=== PATIENT | female | born 1970 | race African-American/Black ===

== ENCOUNTER 2023-07-20 17:09 | Inpatient (IN) | payer OTHER ==
[~2023-07-20] VITALS: Ht 170.2 cm; Wt 89.8 kg
[2023-07-20] MEDS ORDERED: NICARDIPINE 40MG/200ML PREMIX 200 ML IV ONE ×2 (17:45→18:37)
[2023-07-20 18:22] LABS: BASOPHILS % 0.4 % (0.0-2.0); HEMATOCRIT. 42.8 % (36.0-48.0); HEMOGLOBIN. 14.3 g/dL (12.0-16.0); LYMPHOCYTES % 8.5 % (20.0-50.0); MEAN CORPUSCULAR HEMOGLOBIN 30.9 pg (28.0-32.0); MEAN CORPUSCULAR HGB CONC 33.4 g/dL (31.0-37.0); MEAN CORPUSCULAR VOLUME 92.4 fL (81.0-99.0); MEAN PLATELET VOLUME 9.5 fl (7.4-10.4); MONOCYTES % 3.3 % (2.0-8.0); NEUTROPHILS % 87.8 % (40.0-76.0); PLATELET 310 x1000/uL (130-400); RED BLOOD CELL COUNT 4.63 mill/uL (4.2-5.4); RED CELL DISTRIBUTION WIDTH 14.7 % (11.6-14.6); WHITE BLOOD COUNT 9.6 x1000/uL (4.5-11.0)
[2023-07-20] MEDS ORDERED: MANNITOL 12.5G (25%) VIAL 50ML IV ONE (18:30)
[2023-07-20] MEDS ORDERED: MANNITOL 20% 250 ML IV NR (18:30)
[2023-07-20 18:31] LABS: PROTHROMBIN TIME 10.6 sec (9.6-11.0)
[2023-07-20 18:33] LABS: CHLORIDE 100 mEq/L (98-107); INDEX HEMOLYSI 1 (1-3); INDEX ICTERIC 1 (1-4); INDEX LIPEMIC 1 (1-3); POTASSIUM 3.1 mEq/L (3.5-5.1); SODIUM 139 mEq/L (136-145)
[2023-07-20 18:46] LABS: ALANINE AMINOTRANSFERASE 24 IU/L (13-61); ALBUMIN 4.4 g/dL (3.4-5.0); ASPARTATE AMINOTRANSFERASE 17 IU/L (15-37); BILIRUBIN TOTAL 0.9 mg/dL (0.1-1.0); CALCIUM 9.8 mg/dL (8.5-10.1); CARBON DIOXIDE 28 mEq/L (21-32); ETHANOL BLOOD < 10 mg/dL (<10); GLUCOSE 176 mg/dL (70-105); NT PRO B-TYPE NATRIURETIC PEP 554 pg/mL (5-125); PROTEIN TOTAL 9.4 g/dL (6.0-8.3); TROPONIN I HIGH SENSITIVITY 16 ng/L (<54); UREA NITROGEN BLOOD 15 mg/dL (7-21)
[2023-07-20] MEDS ORDERED: ESMOLOL 2500MG PREMIX 250 ML IV ONE ×2 (19:00→19:45)
[2023-07-20 20:30] LABS: CLARITY URINE CLEAR (CLEAR); COLOR URINE YELLOW (YELLOW); GLUCOSE URINE NEGATIVE (NEGATIVE); KETONES URINE NEGATIVE (NEGATIVE); LEUKOCYTE ESTERASE URINE NEGATIVE (NEGATIVE); NITRITE URINE NEGATIVE (NEGATIVE); OCCULT BLOOD URINE TRACE (NEGATIVE); PH URINE 6.5 (4.5-8.0); PROTEIN URINE 3+ (NEGATIVE); SPECIFIC GRAVITY URINE 1.024 (1.005-1.030); UROBILINOGEN URINE 0.2 E.U./dL (0.2-1.0)
[2023-07-20 20:32] LABS: SQUAMOUS EPITHELIAL CELL URINE 1+ /lpf (RARE/1+); YEAST URINE NONE SEEN
[2023-07-20] MEDS ORDERED: MORPHINE SULFATE 4 MG/ML CPJ (NOT FOR IM USE) IV STA (20:36)
[2023-07-20] MEDS ORDERED: ONDANSETRON HCL 4MG/2ML INJ IV STA (20:36)
[2023-07-20 20:45] LABS: TROPONIN I HIGH SENSITIVITY 17 ng/L (<54)
[2023-07-20 20:47] LABS: *AMPHETAMINES SCREEN URINE NEGATIVE (NEGATIVE); *BARBITURATES SCREEN URINE NEGATIVE (NEGATIVE); *BENZODIAZEPINES SCREEN URINE NEGATIVE (NEGATIVE); *COCAINE SCREEN URINE NEGATIVE (NEGATIVE); CANNABINOID URINE SCREEN NEGATIVE (NEGATIVE); ECSTASY MDMA SCREEN URINE NEGATIVE (NEGATIVE); METHADONE URINE SCREEN NEGATIVE (NEGATIVE); OPIATES URINE SCREEN NEGATIVE (NEGATIVE); PHENCYCLIDINE URINE SCREEN NEGATIVE (NEGATIVE)
[2023-07-20] MEDS ORDERED: MORPHINE SULFATE 4 MG/ML CPJ (NOT FOR IM USE) IV ONE (20:48)
[2023-07-20 20:52] LABS: BACTERIA URINE TRACE; RBC URINE 0-2 /hpf (0-2)
[2023-07-20] MEDS ORDERED: ONDANSETRON HCL 4MG/2ML INJ ONE (20:53)
[2023-07-20] MEDS ORDERED: NICARDIPINE 40MG/200ML PREMIX 200 ML IV PRN ×2 (21:45→22:00)
[2023-07-20] MEDS ORDERED: NICARDIPINE 100 MG in SODIUM CHLORIDE 0.9% 60 ML IV PRN (22:00)
[2023-07-20] MEDS ORDERED: DOCUSATE SODIUM 100MG CAPSULE PO PRN (23:45)
[2023-07-20] MEDS ORDERED: ACETAMINOPHEN 325MG TABLET PO PRN ×2 (23:45)
[2023-07-20] MEDS ORDERED: ONDANSETRON HCL 4MG/2ML INJ IV PRN (23:45)
[2023-07-21] VITALS (82 sets, daily range): BP systolic 93–169; BP diastolic 56–122; PULSE 77–103; RESP 13–23; TEMP 97.6–98.8
[2023-07-21] MEDS ORDERED: DEXAMETHASONE 4MG/ML 1ML VIAL IV SCH ×2
[2023-07-21] MEDS ORDERED: MANNITOL 20% (20GM/100ML) BAG 500ML PREMIX IV SCH (00:15)
[2023-07-21] MEDS ORDERED: MANNITOL 20% 500 ML IV SCH (00:15)
[2023-07-21] MEDS ORDERED: ESMOLOL 2500MG PREMIX 250 ML IV ONE (00:30)
[2023-07-21] MEDS: LACTATED RINGERS 1,000 ML IV SCH ×2 (01:15→14:35)
[2023-07-21] MEDS: NICARDIPINE 100 MG in SODIUM CHLORIDE 0.9% 60 ML IV PRN ×2 (01:58→10:16)
[2023-07-21] MEDS: DEXAMETHASONE 10 MG/ML VIAL IV SCH ×6 (01:58→20:14)
[2023-07-21] MEDS: DEXT 5%/LACTATED RINGERS 1,000 ML IV SCH ×2 (01:59→17:47)
[2023-07-21] MEDS: MANNITOL 20% 500 ML IV SCH ×5 (02:10→17:48)
[2023-07-21] MEDS: KCL 20MEQ/100ML PREMIX 100 ML IV SCH ×2 (02:53→04:55)
[2023-07-21] MEDS ORDERED: LABETALOL 5MG/ML SYR 20 MG/4 ML SYRINGE IV ONE ×2 (03:07→20:49)
[2023-07-21] MEDS: LABETALOL HCL VIAL 20 MG/4 ML VIAL IV PRN ×2 (03:15→20:52)
[2023-07-21 05:34] LABS: HEMATOCRIT. 37.1 % (36.0-48.0); HEMOGLOBIN. 12.6 g/dL (12.0-16.0); MEAN CORPUSCULAR HEMOGLOBIN 31.4 pg (28.0-32.0); MEAN CORPUSCULAR HGB CONC 33.8 g/dL (31.0-37.0); MEAN CORPUSCULAR VOLUME 92.9 fL (81.0-99.0); MEAN PLATELET VOLUME 9.7 fl (7.4-10.4); PLATELET 274 x1000/uL (130-400); WHITE BLOOD COUNT 10.3 x1000/uL (4.5-11.0)
[2023-07-21 06:01] LABS: CHLORIDE 96 mEq/L (98-107); INDEX HEMOLYSI 1 (1-3); INDEX ICTERIC 1 (1-4); INDEX LIPEMIC 1 (1-3); POTASSIUM 3.9 mEq/L (3.5-5.1); SODIUM 131 mEq/L (136-145)
[2023-07-21 06:16] LABS: ALANINE AMINOTRANSFERASE 20 IU/L (13-61); ALBUMIN 3.8 g/dL (3.4-5.0); ASPARTATE AMINOTRANSFERASE 18 IU/L (15-37); CALCIUM 8.6 mg/dL (8.5-10.1); CARBON DIOXIDE 26 mEq/L (21-32); CHOLESTEROL 177 mg/dL (<200); CREATINE KINASE 123 IU/L (26-192); CREATININE 1.9 mg/dL (0.6-1.3); GLUCOSE 163 mg/dL (70-105); HDL CHOLESTEROL 76 mg/dL (40-59); LDL CHOLESTEROL 95 mg/dL (5-100); PROTEIN TOTAL 8.2 g/dL (6.0-8.3); T4 FREE 0.83 ng/dL (0.76-1.46); TRIGLYCERIDE 88 mg/dL (0-150); UREA NITROGEN BLOOD 20 mg/dL (7-21)
[2023-07-21 06:26] LABS: DIFFERENTIAL COMMENT 1
[2023-07-21 08:00] LABS: HEPATITIS B SURFACE ANTIGEN NEGATIVE
[2023-07-21 08:29] LABS: HEPATITIS C VIR.AB 0.16 INDEXVAL (0.00-0.80)
[2023-07-21] MEDS: FAMOTIDINE 20MG/2ML VIAL IV SCH (08:29)
[2023-07-21] MEDS ORDERED: IOHEXOL-350 100 ML BOTTLE ONE (09:45)
[2023-07-21 13:48] LABS: PLATELET ESTIMATE NORMAL
[2023-07-21] MEDS ORDERED: MAGNESIUM 2 G PREMIX 50 ML IV NR (14:30)
[2023-07-21 17:43] LABS: INDEX HEMOLYSI 1 (1-3)
[2023-07-21 17:50] LABS: CREATINE KINASE 107 IU/L (26-192)
[2023-07-22] VITALS (98 sets, daily range): BP systolic 97–153; BP diastolic 65–94; PULSE 73–104; RESP 12–29; TEMP 97.5–98.5
[2023-07-22] MEDS: DEXAMETHASONE 10 MG/ML VIAL IV SCH ×2 (00:05→04:10)
[2023-07-22] MEDS: NICARDIPINE 100 MG in SODIUM CHLORIDE 0.9% 60 ML IV PRN ×2 (01:12→14:49)
[2023-07-22 05:47] LABS: BASOPHILS % 0.2 % (0.0-2.0); HEMATOCRIT. 40.4 % (36.0-48.0); HEMOGLOBIN. 13.1 g/dL (12.0-16.0); MEAN CORPUSCULAR HEMOGLOBIN 30.7 pg (28.0-32.0); MEAN CORPUSCULAR HGB CONC 32.3 g/dL (31.0-37.0); MEAN CORPUSCULAR VOLUME 95.2 fL (81.0-99.0); MEAN PLATELET VOLUME 9.4 fl (7.4-10.4); MONOCYTES % 2.3 % (2.0-8.0); NEUTROPHILS % 89.5 % (40.0-76.0); PLATELET 286 x1000/uL (130-400); RED BLOOD CELL COUNT 4.25 mill/uL (4.2-5.4); RED CELL DISTRIBUTION WIDTH 15.1 % (11.6-14.6); WHITE BLOOD COUNT 14.9 x1000/uL (4.5-11.0)
[2023-07-22 06:05] LABS: CHLORIDE 107 mEq/L (98-107); INDEX HEMOLYSI 1 (1-3); INDEX ICTERIC 1 (1-4); INDEX LIPEMIC 1 (1-3); POTASSIUM 3.7 mEq/L (3.5-5.1); SODIUM 141 mEq/L (136-145)
[2023-07-22 06:39] LABS: ALANINE AMINOTRANSFERASE 23 IU/L (13-61); ALBUMIN 4.1 g/dL (3.4-5.0); ASPARTATE AMINOTRANSFERASE 17 IU/L (15-37); BILIRUBIN TOTAL 0.8 mg/dL (0.1-1.0); CREATININE 2.3 mg/dL (0.6-1.3); GLUCOSE 173 mg/dL (70-105); PHOSPHORUS 4.7 mg/dL (2.5-4.9); PROTEIN TOTAL 9.1 g/dL (6.0-8.3); UREA NITROGEN BLOOD 24 mg/dL (7-21)
[2023-07-22] MEDS ORDERED: LABETALOL 5MG/ML SYR 20 MG/4 ML SYRINGE IV ONE (07:25)
[2023-07-22] MEDS: LABETALOL HCL VIAL 20 MG/4 ML VIAL IV PRN (07:33)
[2023-07-22] MEDS: DEXAMETHASONE 4MG/ML 1ML VIAL IV SCH ×4 (08:49→23:53)
[2023-07-22] MEDS: FAMOTIDINE 20MG/2ML VIAL IV SCH (08:49)
[2023-07-22] MEDS: LACTATED RINGERS 1,000 ML IV SCH (08:50)
[2023-07-22] MEDS: LEVETIRACETAM 500MG PREMIX 100 ML IV SCH ×2 (11:36→20:54)
[2023-07-22 11:40] LABS: CARBON DIOXIDE 23 mEq/L (21-32)
[2023-07-22] MEDS: DEXT 5%/LACTATED RINGERS 1,000 ML IV SCH ×2 (13:11→14:51)
[2023-07-23] VITALS (100 sets, daily range): BP systolic 94–159; BP diastolic 59–92; PULSE 80–113; RESP 11–21; TEMP 98.1–98.7
[2023-07-23] MEDS: NICARDIPINE 100 MG in SODIUM CHLORIDE 0.9% 60 ML IV PRN ×3 (02:26→19:49)
[2023-07-23] MEDS ORDERED: LABETALOL HCL VIAL 20 MG/4 ML VIAL IV PRN (05:00)
[2023-07-23 05:23] LABS: HEMATOCRIT. 38.6 % (36.0-48.0); HEMOGLOBIN. 12.5 g/dL (12.0-16.0); MEAN CORPUSCULAR HEMOGLOBIN 30.8 pg (28.0-32.0); MEAN CORPUSCULAR HGB CONC 32.3 g/dL (31.0-37.0); MEAN CORPUSCULAR VOLUME 95.4 fL (81.0-99.0); MEAN PLATELET VOLUME 9.5 fl (7.4-10.4); PLATELET 281 x1000/uL (130-400); RED BLOOD CELL COUNT 4.05 mill/uL (4.2-5.4); WHITE BLOOD COUNT 16.4 x1000/uL (4.5-11.0)
[2023-07-23 05:28] LABS: CHLORIDE 113 mEq/L (98-107); INDEX HEMOLYSI 1 (1-3); INDEX ICTERIC 1 (1-4); INDEX LIPEMIC 1 (1-3); POTASSIUM 3.7 mEq/L (3.5-5.1); SODIUM 145 mEq/L (136-145)
[2023-07-23 05:41] LABS: ALANINE AMINOTRANSFERASE 53 IU/L (13-61); ALBUMIN 3.6 g/dL (3.4-5.0); ASPARTATE AMINOTRANSFERASE 60 IU/L (15-37); CALCIUM 9.3 mg/dL (8.5-10.1); CARBON DIOXIDE 27 mEq/L (21-32); CREATININE 1.6 mg/dL (0.6-1.3); GLUCOSE 166 mg/dL (70-105); PHOSPHORUS 4.1 mg/dL (2.5-4.9); PROTEIN TOTAL 8.2 g/dL (6.0-8.3); UREA NITROGEN BLOOD 37 mg/dL (7-21)
[2023-07-23] MEDS: DEXT 5%/LACTATED RINGERS 1,000 ML IV SCH ×2 (06:02→23:16)
[2023-07-23] MEDS: DEXAMETHASONE 4MG/ML 1ML VIAL IV SCH ×4 (06:02→23:16)
[2023-07-23 06:34] LABS: DIFFERENTIAL COMMENT 1
[2023-07-23] MEDS: FAMOTIDINE 20MG/2ML VIAL IV SCH (08:27)
[2023-07-23] MEDS: LEVETIRACETAM 500MG PREMIX 100 ML IV SCH (08:27)
[2023-07-23] MEDS: LABETALOL 5MG/ML SYR 20 MG/4 ML SYRINGE IV PRN ×2 (09:07→12:08)
[2023-07-23] MEDS ORDERED: AMLODIPINE 10MG TABLET PO SCH (09:15)
[2023-07-23 12:51] LABS: PLATELET ESTIMATE NORMAL
[2023-07-23] MEDS: AMLODIPINE 10MG TABLET PO SCH (15:36)
[2023-07-23] MEDS: MORPHINE SULFATE 2 MG/ML CPJ (NOT FOR IM USE) IV PRN (16:54)
[2023-07-23] MEDS: HYDRALAZINE 20MG/ML VIAL IV PRN (17:07)
[2023-07-23] MEDS: METOPROLOL TARTRATE 25MG TABLET PO SCH (20:26)
[2023-07-23] MEDS: LEVETIRACETAM 500MG TABLET PO SCH (20:32)
[2023-07-23] MEDS ORDERED: LEVETIRACETAM 500MG PREMIX 100 ML IV SCH (21:00)
[2023-07-23] MEDS ORDERED: FAMOTIDINE 20MG TABLET PO SCH (21:00)
[2023-07-23] MEDS: HYDRALAZINE HCL 50MG TABLET PO SCH (21:40)
[2023-07-24] VITALS (92 sets, daily range): BP systolic 104–156; BP diastolic 63–92; PULSE 67–110; RESP 10–37; TEMP 98.3–99.2
[2023-07-24 05:24] LABS: HEMATOCRIT. 39.6 % (36.0-48.0); MEAN CORPUSCULAR HEMOGLOBIN 31.2 pg (28.0-32.0); MEAN CORPUSCULAR HGB CONC 32.9 g/dL (31.0-37.0); MEAN CORPUSCULAR VOLUME 94.9 fL (81.0-99.0); MEAN PLATELET VOLUME 9.7 fl (7.4-10.4); PLATELET 272 x1000/uL (130-400); RED BLOOD CELL COUNT 4.17 mill/uL (4.2-5.4); RED CELL DISTRIBUTION WIDTH 15.2 % (11.6-14.6); WHITE BLOOD COUNT 12.2 x1000/uL (4.5-11.0)
[2023-07-24 05:36] LABS: CHLORIDE 116 mEq/L (98-107); INDEX HEMOLYSI 1 (1-3); INDEX ICTERIC 1 (1-4); INDEX LIPEMIC 1 (1-3); POTASSIUM 3.5 mEq/L (3.5-5.1); SODIUM 149 mEq/L (136-145)
[2023-07-24 05:46] LABS: ALANINE AMINOTRANSFERASE 207 IU/L (13-61); ALBUMIN 3.6 g/dL (3.4-5.0); ASPARTATE AMINOTRANSFERASE 203 IU/L (15-37); BILIRUBIN TOTAL 0.9 mg/dL (0.1-1.0); CALCIUM 9.4 mg/dL (8.5-10.1); CARBON DIOXIDE 29 mEq/L (21-32); CREATININE 1.4 mg/dL (0.6-1.3); GLUCOSE 171 mg/dL (70-105); PHOSPHORUS 3.1 mg/dL (2.5-4.9); PROTEIN TOTAL 8.2 g/dL (6.0-8.3); UREA NITROGEN BLOOD 36 mg/dL (7-21)
[2023-07-24] MEDS: DEXAMETHASONE 4MG/ML 1ML VIAL IV SCH ×2 (06:03→11:54)
[2023-07-24] MEDS: HYDRALAZINE HCL 50MG TABLET PO SCH ×3 (06:03→22:00)
[2023-07-24 06:16] LABS: DIFFERENTIAL COMMENT 1
[2023-07-24] MEDS: LEVETIRACETAM 500MG TABLET PO SCH ×2 (08:02→20:57)
[2023-07-24] MEDS: AMLODIPINE 10MG TABLET PO SCH (08:02)
[2023-07-24] MEDS: METOPROLOL TARTRATE 25MG TABLET PO SCH ×2 (08:03→20:57)
[2023-07-24] MEDS ORDERED: FAMOTIDINE 20MG TABLET PO SCH (09:00)
[2023-07-24] MEDS ORDERED: AMLODIPINE 5MG TABLET PO SCH (09:00)
[2023-07-24] MEDS ORDERED: POTASSIUM CHLORIDE 20MEQ TABLET SR PO NR (09:15)
[2023-07-24] MEDS ORDERED: NALOXONE HCL 0.4MG/ML VIAL IV PRN (09:30)
[2023-07-24 11:20] LABS: NUCLEATED RED BLOOD CELLS 1 /100 WBC; PLATELET ESTIMATE NORMAL
[2023-07-24] MEDS: HYDRALAZINE 20MG/ML VIAL IV PRN (15:55)
[2023-07-24] MEDS: DEXT 5%/LACTATED RINGERS 1,000 ML IV SCH (16:46)
[2023-07-24] MEDS: LABETALOL 5MG/ML SYR 20 MG/4 ML SYRINGE IV PRN (18:40)
[2023-07-24] MEDS: MORPHINE SULFATE 2 MG/ML CPJ (NOT FOR IM USE) IV PRN (19:52)
[2023-07-24] MEDS ORDERED: MANNITOL 12.5G (25%) VIAL 50ML IV SCH (21:15)
[2023-07-24] MEDS: NICARDIPINE 100 MG in SODIUM CHLORIDE 0.9% 60 ML IV PRN (22:04)
[2023-07-24] MEDS ORDERED: THROMBIN (BOVINE) 5000 UNITS/VIAL TOP ONE (23:15)
[2023-07-24] MEDS ORDERED: LIDOCAINE HCL 1%/EPI 1:200,000 30 ML VIAL ONE (23:15)
[2023-07-24] MEDS ORDERED: BACITRACIN 14GM TUBE TOP ONE (23:15)
[2023-07-24] MEDS ORDERED: GENTAMICIN SULF 40MG/ML 2ML VIAL ONE (23:15)
[2023-07-24] MEDS ORDERED: CEFAZOLIN SODIUM 1000MG/VIAL ONE (23:23)
[2023-07-24] MEDS ORDERED: ROCURONIUM BROMIDE 10MG/ML VIAL 5ML IV ONE (23:25)
[2023-07-25] VITALS (92 sets, daily range): BP systolic 95–176; BP diastolic 51–93; PULSE 85–121; RESP 0–31; TEMP 97.7–99.5
[2023-07-25] MEDS ORDERED: PROPOFOL 200MG/20ML VIAL IV ONE (00:30)
[2023-07-25] MEDS ORDERED: SUCCINYLCHOLINE CHLORIDE 200MG/10ML IV ONE (00:55)
[2023-07-25] MEDS ORDERED: LEVETIRACETAM 500 MG in SODIUM CHLORIDE 0.9% 100 ML IV SCH (01:15)
[2023-07-25] MEDS ORDERED: DEXAMETHASONE 4MG/ML 1ML VIAL ONE (01:19)
[2023-07-25] MEDS ORDERED: ONDANSETRON HCL 4MG/2ML INJ ONE (01:19)
[2023-07-25 01:27] LABS: BG CARBOXYHEMOGLOBIN 0.3 % (0.5-1.5); BG DEOXYHEMOGLOBIN 0.4 % (0.0-5.0); BG FRACTION INSPIRED OXYGEN 100; BG HCO3 ACT 21.4 mmol/L (22.0-26.0); BG METHEMOGLOBIN 0.2 % (0.0-1.5); BG OXYGEN SATURATION 99.6 % (92.0-98.5); BG OXYHEMOGLOBIN 99.1 % (94.0-97.0); BG PCO2 36.4 mmHg (35.0-45.0); BG PH 7.388 (7.350-7.450); BG PO2 359.6 mmHg (75.0-100.0); BG SAMPLE SITE ALINE; BG TOTAL HEMOGLOBIN 14.3 g/dL (12.0-18.0); BG VENT MODE VENT - AC
[2023-07-25] MEDS: MORPHINE SULFATE 2 MG/ML CPJ (NOT FOR IM USE) IV PRN (02:17)
[2023-07-25] MEDS: PROPOFOL 10MG/ML 100ML 100 ML IV PRN ×2 (02:18→08:07)
[2023-07-25] MEDS: LEVETIRACETAM 500MG PREMIX 100 ML IV SCH ×2 (02:19→20:37)
[2023-07-25] MEDS ORDERED: LEVETIRACETAM 500MG in SODIUM CHLORIDE 0.9% 100ML IV SCH (03:00)
[2023-07-25] MEDS: LABETALOL 5MG/ML SYR 20 MG/4 ML SYRINGE IV PRN ×2 (03:28→16:10)
[2023-07-25] MEDS: NICARDIPINE 100 MG in SODIUM CHLORIDE 0.9% 60 ML IV PRN ×4 (04:02→19:23)
[2023-07-25] MEDS: CEFAZOLIN 1000MG PREMIX 50 ML IV SCH ×3 (05:51→21:52)
[2023-07-25] MEDS: HYDRALAZINE HCL 50MG TABLET PO SCH (06:00)
[2023-07-25] MEDS ORDERED: CEFAZOLIN 1000MG/50ML PREMIX IV SCH (06:00)
[2023-07-25 06:18] LABS: BG BASE EXCESS -2.2 mmol/L (-2.0-2.0); BG CARBOXYHEMOGLOBIN 0.2 % (0.5-1.5); BG FRACTION INSPIRED OXYGEN 50; BG HCO3 ACT 21.7 mmol/L (22.0-26.0); BG METHEMOGLOBIN 0.2 % (0.0-1.5); BG OXYHEMOGLOBIN 97.6 % (94.0-97.0); BG PCO2 34.5 mmHg (35.0-45.0); BG PH 7.416 (7.350-7.450); BG PO2 116.8 mmHg (75.0-100.0); BG SAMPLE SITE ALINE; BG TOTAL HEMOGLOBIN 12.8 g/dL (12.0-18.0); BG VENT MODE VENT - AC
[2023-07-25] MEDS: DEXAMETHASONE 4MG/ML 1ML VIAL IV SCH (08:07)
[2023-07-25] MEDS ORDERED: LIDOCAINE HCL/PF 1% 10 MG/ML 5ML VIAL ONE (08:47)
[2023-07-25] MEDS ORDERED: ACETAMINOPHEN 650MG SUPP PR PRN (09:00)
[2023-07-25] MEDS: DEXT 5%/LACTATED RINGERS 1,000 ML IV SCH (09:18)
[2023-07-25] MEDS: PANTOPRAZOLE SODIUM 40 MG/VIAL IV SCH (09:18)
[2023-07-25 11:51] LABS: HEMATOCRIT. 32.5 % (36.0-48.0); HEMOGLOBIN. 10.6 g/dL (12.0-16.0); MEAN CORPUSCULAR HEMOGLOBIN 31.3 pg (28.0-32.0); MEAN CORPUSCULAR HGB CONC 32.6 g/dL (31.0-37.0); MEAN CORPUSCULAR VOLUME 95.8 fL (81.0-99.0); MEAN PLATELET VOLUME 9.3 fl (7.4-10.4); PLATELET 206 x1000/uL (130-400); RED BLOOD CELL COUNT 3.39 mill/uL (4.2-5.4); RED CELL DISTRIBUTION WIDTH 15.1 % (11.6-14.6); WHITE BLOOD COUNT 10.5 x1000/uL (4.5-11.0)
[2023-07-25 11:53] LABS: DIFFERENTIAL COMMENT 1
[2023-07-25 12:00] LABS: CHLORIDE 111 mEq/L (98-107); INDEX HEMOLYSI 1 (1-3); INDEX ICTERIC 1 (1-4); INDEX LIPEMIC 1 (1-3); POTASSIUM 3.5 mEq/L (3.5-5.1); SODIUM 144 mEq/L (136-145)
[2023-07-25 12:00] LABS: BG BASE EXCESS 1.5 mmol/L (-2.0-2.0); BG CARBOXYHEMOGLOBIN 0.4 % (0.5-1.5); BG DEOXYHEMOGLOBIN 2.1 % (0.0-5.0); BG FRACTION INSPIRED OXYGEN 40; BG METHEMOGLOBIN 0.2 % (0.0-1.5); BG OXYGEN SATURATION 97.9 % (92.0-98.5); BG OXYHEMOGLOBIN 97.3 % (94.0-97.0); BG PCO2 40.6 mmHg (35.0-45.0); BG PH 7.424 (7.350-7.450); BG PO2 104.1 mmHg (75.0-100.0); BG SAMPLE SITE RIGHT RADIAL; BG TOTAL HEMOGLOBIN 14.7 g/dL (12.0-18.0); BG VENT MODE VENT - CPAP
[2023-07-25 12:08] LABS: ALANINE AMINOTRANSFERASE 267 IU/L (13-61); ALBUMIN 3.2 g/dL (3.4-5.0); ASPARTATE AMINOTRANSFERASE 151 IU/L (15-37); BILIRUBIN TOTAL 1.1 mg/dL (0.1-1.0); CALCIUM 8.8 mg/dL (8.5-10.1); CARBON DIOXIDE 28 mEq/L (21-32); CREATININE 1.4 mg/dL (0.6-1.3); GLUCOSE 197 mg/dL (70-105); PHOSPHORUS 3.3 mg/dL (2.5-4.9); PROTEIN TOTAL 7.5 g/dL (6.0-8.3); UREA NITROGEN BLOOD 31 mg/dL (7-21)
[2023-07-25 13:24] LABS: ANISOCYTOSIS 1+; PLATELET ESTIMATE NORMAL
[2023-07-25] MEDS: HYDRALAZINE 20MG/ML VIAL IV PRN ×2 (15:06→23:28)
[2023-07-26] VITALS (85 sets, daily range): BP systolic 128–170; BP diastolic 42–91; PULSE 89–112; RESP 0–27; TEMP 98.2–99.8
[2023-07-26] MEDS: NICARDIPINE 100 MG in SODIUM CHLORIDE 0.9% 60 ML IV PRN ×5 (02:23→23:18)
[2023-07-26] MEDS: CEFAZOLIN 1000MG PREMIX 50 ML IV SCH ×3 (05:56→21:11)
[2023-07-26] MEDS: DEXT 5%/LACTATED RINGERS 1,000 ML IV SCH ×2 (06:49→18:30)
[2023-07-26] MEDS: HYDRALAZINE 20MG/ML VIAL IV PRN (06:55)
[2023-07-26] MEDS: PANTOPRAZOLE SODIUM 40 MG/VIAL IV SCH (08:58)
[2023-07-26] MEDS: DEXAMETHASONE 4MG/ML 1ML VIAL IV SCH (08:58)
[2023-07-26] MEDS: AMLODIPINE 5MG TABLET PO SCH (08:59)
[2023-07-26] MEDS: LEVETIRACETAM 500MG PREMIX 100 ML IV SCH ×2 (08:59→20:06)
[2023-07-26 09:31] LABS: HEMATOCRIT 38.4 % (36.0-48.0); HEMOGLOBIN 12.5 g/dL (12.0-16.0); MEAN CORPUSCULAR HEMOGLOBIN 30.9 pg (28.0-32.0); MEAN CORPUSCULAR HGB CONC 32.6 g/dL (31.0-37.0); MEAN CORPUSCULAR VOLUME 94.7 fL (81.0-99.0); PLATELET 222 x1000/uL (130-400); RED BLOOD CELL COUNT 4.06 mill/uL (4.2-5.4); RED CELL DISTRIBUTION WIDTH 14.9 % (11.6-14.6)
[2023-07-26 09:44] LABS: CHLORIDE 111 mEq/L (98-107); INDEX HEMOLYSI 1 (1-3); INDEX ICTERIC 1 (1-4); INDEX LIPEMIC 1 (1-3); POTASSIUM 3.1 mEq/L (3.5-5.1); SODIUM 146 mEq/L (136-145)
[2023-07-26 09:52] LABS: ALANINE AMINOTRANSFERASE 231 IU/L (13-61); ALBUMIN 2.9 g/dL (3.4-5.0); ASPARTATE AMINOTRANSFERASE 110 IU/L (15-37); BILIRUBIN TOTAL 0.7 mg/dL (0.1-1.0); CALCIUM 8.6 mg/dL (8.5-10.1); CARBON DIOXIDE 31 mEq/L (21-32); GLUCOSE 182 mg/dL (70-105); PHOSPHORUS 2.6 mg/dL (2.5-4.9); PROTEIN TOTAL 7.2 g/dL (6.0-8.3); UREA NITROGEN BLOOD 27 mg/dL (7-21)
[2023-07-26] MEDS: MORPHINE SULFATE 2 MG/ML CPJ (NOT FOR IM USE) IV PRN (10:17)
[2023-07-26] MEDS: HYDRALAZINE HCL 10MG TABLET PO SCH ×2 (14:08→21:12)
[2023-07-26] MEDS: KCL 20MEQ/100ML PREMIX 100 ML IV SCH ×2 (16:30→18:29)
[2023-07-27] VITALS (86 sets, daily range): BP systolic 117–158; BP diastolic 66–99; PULSE 77–110; RESP 0–25; TEMP 98.2–98.7
[2023-07-27] MEDS: CEFAZOLIN 1000MG PREMIX 50 ML IV SCH (05:23)
[2023-07-27] MEDS: HYDRALAZINE HCL 10MG TABLET PO SCH (05:24)
[2023-07-27 05:30] LABS: HEMATOCRIT 38.7 % (36.0-48.0); HEMOGLOBIN 12.8 g/dL (12.0-16.0); MEAN CORPUSCULAR HEMOGLOBIN 31.2 pg (28.0-32.0); MEAN CORPUSCULAR VOLUME 94.6 fL (81.0-99.0); PLATELET 221 x1000/uL (130-400); RED BLOOD CELL COUNT 4.09 mill/uL (4.2-5.4); RED CELL DISTRIBUTION WIDTH 14.3 % (11.6-14.6); WHITE BLOOD COUNT 9.8 x1000/uL (4.5-11.0)
[2023-07-27 05:32] LABS: CHLORIDE 107 mEq/L (98-107); INDEX HEMOLYSI 1 (1-3); INDEX ICTERIC 1 (1-4); INDEX LIPEMIC 1 (1-3); POTASSIUM 3.2 mEq/L (3.5-5.1); SODIUM 143 mEq/L (136-145)
[2023-07-27 05:39] LABS: ALANINE AMINOTRANSFERASE 163 IU/L (13-61); ALBUMIN 2.7 g/dL (3.4-5.0); ASPARTATE AMINOTRANSFERASE 55 IU/L (15-37); BILIRUBIN TOTAL 0.7 mg/dL (0.1-1.0); CALCIUM 8.4 mg/dL (8.5-10.1); CARBON DIOXIDE 29 mEq/L (21-32); CREATININE 0.9 mg/dL (0.6-1.3); GLUCOSE 161 mg/dL (70-105); PHOSPHORUS 2.6 mg/dL (2.5-4.9); PROTEIN TOTAL 7.2 g/dL (6.0-8.3); UREA NITROGEN BLOOD 23 mg/dL (7-21)
[2023-07-27] MEDS: NICARDIPINE 100 MG in SODIUM CHLORIDE 0.9% 60 ML IV PRN ×3 (07:36→21:50)
[2023-07-27] MEDS: AMLODIPINE 5MG TABLET PO SCH (07:37)
[2023-07-27] MEDS: KCL 20MEQ/100ML PREMIX 100 ML IV SCH ×2 (07:37→10:09)
[2023-07-27] MEDS: HYDRALAZINE 20MG/ML VIAL IV PRN (07:37)
[2023-07-27] MEDS: PANTOPRAZOLE SODIUM 40 MG/VIAL IV SCH (07:45)
[2023-07-27] MEDS: DEXAMETHASONE 4MG/ML 1ML VIAL IV SCH (07:45)
[2023-07-27] MEDS: LEVETIRACETAM 500MG PREMIX 100 ML IV SCH ×2 (07:45→20:41)
[2023-07-27] MEDS: METOPROLOL TARTRATE 25MG TABLET PO SCH ×2 (09:14→20:40)
[2023-07-27] MEDS: DEXT 5%/LACTATED RINGERS 1,000 ML IV SCH ×2 (10:09→21:50)
[2023-07-27] MEDS: HYDRALAZINE HCL 25MG TABLET PO SCH ×2 (13:09→21:49)
[2023-07-28] VITALS (96 sets, daily range): BP systolic 95–153; BP diastolic 63–93; PULSE 69–111; RESP 12–54; TEMP 98–98.5
[2023-07-28 05:31] LABS: BASOPHILS % 0.1 % (0.0-2.0); HEMATOCRIT. 38.3 % (36.0-48.0); HEMOGLOBIN. 12.8 g/dL (12.0-16.0); LYMPHOCYTES % 8.7 % (20.0-50.0); MEAN CORPUSCULAR HEMOGLOBIN 31.4 pg (28.0-32.0); MEAN CORPUSCULAR HGB CONC 33.4 g/dL (31.0-37.0); MEAN CORPUSCULAR VOLUME 94.1 fL (81.0-99.0); MEAN PLATELET VOLUME 9.6 fl (7.4-10.4); MONOCYTES % 5.4 % (2.0-8.0); NEUTROPHILS % 85.8 % (40.0-76.0); PLATELET 210 x1000/uL (130-400); RED BLOOD CELL COUNT 4.07 mill/uL (4.2-5.4); RED CELL DISTRIBUTION WIDTH 14.5 % (11.6-14.6); WHITE BLOOD COUNT 8.8 x1000/uL (4.5-11.0)
[2023-07-28] MEDS: HYDRALAZINE HCL 25MG TABLET PO SCH ×3 (05:46→21:02)
[2023-07-28 05:54] LABS: CALCIUM 8.2 mg/dL (8.5-10.1); CARBON DIOXIDE 28 mEq/L (21-32); CHLORIDE 104 mEq/L (98-107); GLUCOSE 156 mg/dL (70-105); INDEX HEMOLYSI 1 (1-3); INDEX ICTERIC 1 (1-4); INDEX LIPEMIC 1 (1-3); POTASSIUM 3.1 mEq/L (3.5-5.1); SODIUM 138 mEq/L (136-145); UREA NITROGEN BLOOD 21 mg/dL (7-21)
[2023-07-28 05:56] LABS: CREATININE 0.8 mg/dL (0.6-1.3)
[2023-07-28] MEDS: AMLODIPINE 10MG TABLET PO SCH (08:59)
[2023-07-28] MEDS: METOPROLOL TARTRATE 25MG TABLET PO SCH ×2 (08:59→20:16)
[2023-07-28] MEDS: PANTOPRAZOLE SODIUM 40 MG/VIAL IV SCH (08:59)
[2023-07-28] MEDS: LEVETIRACETAM 500MG PREMIX 100 ML IV SCH ×2 (09:00→20:16)
[2023-07-28] MEDS ORDERED: POTASSIUM CHLORIDE 20MEQ TABLET SR PO NR (09:45)
[2023-07-28] MEDS: DEXT 5%/LACTATED RINGERS 1,000 ML IV SCH (20:17)
[2023-07-29] VITALS (85 sets, daily range): BP systolic 115–164; BP diastolic 68–96; PULSE 68–94; RESP 12–21; TEMP 97.9–98.4
[2023-07-29] MEDS: HYDRALAZINE 20MG/ML VIAL IV PRN ×2 (02:57→18:31)
[2023-07-29] MEDS: HYDRALAZINE HCL 25MG TABLET PO SCH ×3 (05:05→22:03)
[2023-07-29 05:52] LABS: BASOPHILS % 0.1 % (0.0-2.0); EOSINOPHILS % 0.3 % (0.0-5.0); HEMATOCRIT. 39.5 % (36.0-48.0); HEMOGLOBIN. 13.2 g/dL (12.0-16.0); LYMPHOCYTES % 14.5 % (20.0-50.0); MEAN CORPUSCULAR HEMOGLOBIN 31.3 pg (28.0-32.0); MEAN CORPUSCULAR HGB CONC 33.5 g/dL (31.0-37.0); MEAN CORPUSCULAR VOLUME 93.5 fL (81.0-99.0); MEAN PLATELET VOLUME 9.9 fl (7.4-10.4); MONOCYTES % 5.6 % (2.0-8.0); NEUTROPHILS % 79.5 % (40.0-76.0); PLATELET 216 x1000/uL (130-400); RED BLOOD CELL COUNT 4.22 mill/uL (4.2-5.4); RED CELL DISTRIBUTION WIDTH 14.5 % (11.6-14.6)
[2023-07-29 05:57] LABS: CALCIUM 8.2 mg/dL (8.5-10.1); INDEX HEMOLYSI 1 (1-3); INDEX ICTERIC 1 (1-4); INDEX LIPEMIC 1 (1-3)
[2023-07-29 06:04] LABS: ALANINE AMINOTRANSFERASE 86 IU/L (13-61); ALBUMIN 2.5 g/dL (3.4-5.0); ASPARTATE AMINOTRANSFERASE 29 IU/L (15-37); BILIRUBIN TOTAL 0.7 mg/dL (0.1-1.0); CARBON DIOXIDE 28 mEq/L (21-32); CHLORIDE 103 mEq/L (98-107); CREATININE 0.8 mg/dL (0.6-1.3); GLUCOSE 118 mg/dL (70-105); POTASSIUM 3.1 mEq/L (3.5-5.1); PROTEIN TOTAL 6.5 g/dL (6.0-8.3); SODIUM 136 mEq/L (136-145); UREA NITROGEN BLOOD 20 mg/dL (7-21)
[2023-07-29] MEDS ORDERED: POTASSIUM CHLORIDE 20MEQ TABLET SR PO NR (09:00)
[2023-07-29] MEDS: METOPROLOL TARTRATE 25MG TABLET PO SCH ×2 (09:08→21:05)
[2023-07-29] MEDS: PANTOPRAZOLE SODIUM 40 MG/VIAL IV SCH (09:08)
[2023-07-29] MEDS: LEVETIRACETAM 500MG PREMIX 100 ML IV SCH ×2 (09:08→21:05)
[2023-07-29] MEDS: AMLODIPINE 10MG TABLET PO SCH (09:09)
[2023-07-29] MEDS: DEXT 5%/LACTATED RINGERS 1,000 ML IV SCH (11:55)
[2023-07-29] MEDS: LABETALOL 5MG/ML SYR 20 MG/4 ML SYRINGE IV PRN (18:53)
[2023-07-29] MEDS ORDERED: LABETALOL 5MG/ML SYR 20 MG/4 ML SYRINGE IV ONE (18:54)
[2023-07-30] VITALS (48 sets, daily range): BP systolic 116–162; BP diastolic 77–105; PULSE 64–90; RESP 13–25; TEMP 97.8–98.9
[2023-07-30] MEDS: LABETALOL 5MG/ML SYR 20 MG/4 ML SYRINGE IV PRN ×3 (04:38→19:47)
[2023-07-30 04:42] LABS: BASOPHILS % 0.3 % (0.0-2.0); EOSINOPHILS % 0.9 % (0.0-5.0); HEMATOCRIT. 36.7 % (36.0-48.0); HEMOGLOBIN. 12.3 g/dL (12.0-16.0); LYMPHOCYTES % 14.8 % (20.0-50.0); MEAN CORPUSCULAR HEMOGLOBIN 31.2 pg (28.0-32.0); MEAN CORPUSCULAR HGB CONC 33.5 g/dL (31.0-37.0); MEAN CORPUSCULAR VOLUME 93.2 fL (81.0-99.0); MEAN PLATELET VOLUME 9.2 fl (7.4-10.4); MONOCYTES % 6.3 % (2.0-8.0); NEUTROPHILS % 77.7 % (40.0-76.0); PLATELET 214 x1000/uL (130-400); RED BLOOD CELL COUNT 3.94 mill/uL (4.2-5.4); RED CELL DISTRIBUTION WIDTH 14.1 % (11.6-14.6); WHITE BLOOD COUNT 8.2 x1000/uL (4.5-11.0)
[2023-07-30 04:50] LABS: CHLORIDE 108 mEq/L (98-107); INDEX HEMOLYSI 1 (1-3); INDEX ICTERIC 1 (1-4); INDEX LIPEMIC 1 (1-3); POTASSIUM 2.9 mEq/L (3.5-5.1); SODIUM 138 mEq/L (136-145)
[2023-07-30 05:00] LABS: ALANINE AMINOTRANSFERASE 59 IU/L (13-61); ALBUMIN 2.2 g/dL (3.4-5.0); ASPARTATE AMINOTRANSFERASE 21 IU/L (15-37); BILIRUBIN TOTAL 0.9 mg/dL (0.1-1.0); CALCIUM 7.4 mg/dL (8.5-10.1); CARBON DIOXIDE 27 mEq/L (21-32); CREATININE 0.8 mg/dL (0.6-1.3); GLUCOSE 109 mg/dL (70-105); PROTEIN TOTAL 5.6 g/dL (6.0-8.3); UREA NITROGEN BLOOD 15 mg/dL (7-21)
[2023-07-30] MEDS: DEXT 5%/LACTATED RINGERS 1,000 ML IV SCH ×2 (05:55→21:34)
[2023-07-30] MEDS: HYDRALAZINE HCL 25MG TABLET PO SCH ×3 (05:55→21:34)
[2023-07-30] MEDS ORDERED: POTASSIUM CHLORIDE 20MEQ TABLET SR PO SCH (06:46)
[2023-07-30] MEDS: LEVETIRACETAM 500MG PREMIX 100 ML IV SCH ×2 (08:45→20:49)
[2023-07-30] MEDS: METOPROLOL TARTRATE 25MG TABLET PO SCH ×2 (08:46→20:49)
[2023-07-30] MEDS: PANTOPRAZOLE SODIUM 40 MG/VIAL IV SCH (08:46)
[2023-07-30] MEDS: AMLODIPINE 10MG TABLET PO SCH (08:46)
[2023-07-30] MEDS ORDERED: POTASSIUM CHLORIDE 20MEQ/PACKET PO NR (09:45)
[2023-07-30 12:03] LABS: CHLORIDE 106 mEq/L (98-107); INDEX HEMOLYSI 1 (1-3); INDEX ICTERIC 1 (1-4); INDEX LIPEMIC 1 (1-3); POTASSIUM 3.5 mEq/L (3.5-5.1); SODIUM 138 mEq/L (136-145)
[2023-07-30 12:08] LABS: CALCIUM 8.1 mg/dL (8.5-10.1); CARBON DIOXIDE 31 mEq/L (21-32); CREATININE 0.8 mg/dL (0.6-1.3); GLUCOSE 121 mg/dL (70-105); UREA NITROGEN BLOOD 14 mg/dL (7-21)
[2023-07-31] VITALS (55 sets, daily range): BP systolic 135–162; BP diastolic 78–109; PULSE 69–91; RESP 11–28; TEMP 98–98.6
[2023-07-31] MEDS: LABETALOL 5MG/ML SYR 20 MG/4 ML SYRINGE IV PRN (03:55)
[2023-07-31] MEDS: HYDRALAZINE HCL 25MG TABLET PO SCH ×3 (05:42→22:10)
[2023-07-31] MEDS: HYDRALAZINE 20MG/ML VIAL IV PRN (06:22)
[2023-07-31] MEDS: METOPROLOL TARTRATE 25MG TABLET PO SCH ×2 (09:18→20:31)
[2023-07-31] MEDS: LEVETIRACETAM 500MG PREMIX 100 ML IV SCH ×2 (09:19→20:30)
[2023-07-31] MEDS: PANTOPRAZOLE SODIUM 40 MG/VIAL IV SCH (09:19)
[2023-07-31] MEDS: AMLODIPINE 10MG TABLET PO SCH (09:19)
[2023-07-31] MEDS: DEXT 5%/LACTATED RINGERS 1,000 ML IV SCH (16:00)
[2023-08-01] VITALS (37 sets, daily range): BP systolic 131–161; BP diastolic 78–94; PULSE 77–100; RESP 13–30; TEMP 98.1–99.6
[2023-08-01] MEDS: LABETALOL 5MG/ML SYR 20 MG/4 ML SYRINGE IV PRN (02:48)
[2023-08-01 04:40] LABS: BASOPHILS % 0.1 % (0.0-2.0); EOSINOPHILS % 1.3 % (0.0-5.0); HEMATOCRIT. 35.2 % (36.0-48.0); HEMOGLOBIN. 11.9 g/dL (12.0-16.0); LYMPHOCYTES % 9.7 % (20.0-50.0); MEAN CORPUSCULAR HEMOGLOBIN 31.8 pg (28.0-32.0); MEAN CORPUSCULAR HGB CONC 33.8 g/dL (31.0-37.0); MEAN CORPUSCULAR VOLUME 94.1 fL (81.0-99.0); MEAN PLATELET VOLUME 8.9 fl (7.4-10.4); MONOCYTES % 6.1 % (2.0-8.0); NEUTROPHILS % 82.8 % (40.0-76.0); PLATELET 209 x1000/uL (130-400); RED BLOOD CELL COUNT 3.74 mill/uL (4.2-5.4); RED CELL DISTRIBUTION WIDTH 13.9 % (11.6-14.6); WHITE BLOOD COUNT 9.1 x1000/uL (4.5-11.0)
[2023-08-01 04:48] LABS: CHLORIDE 107 mEq/L (98-107); INDEX HEMOLYSI 1 (1-3); INDEX ICTERIC 1 (1-4); INDEX LIPEMIC 1 (1-3); POTASSIUM 3.2 mEq/L (3.5-5.1); SODIUM 139 mEq/L (136-145)
[2023-08-01 04:59] LABS: ALANINE AMINOTRANSFERASE 74 IU/L (13-61); ALBUMIN 2.5 g/dL (3.4-5.0); ASPARTATE AMINOTRANSFERASE 35 IU/L (15-37); BILIRUBIN TOTAL 0.9 mg/dL (0.1-1.0); CALCIUM 8.3 mg/dL (8.5-10.1); CARBON DIOXIDE 25 mEq/L (21-32); CREATININE 0.8 mg/dL (0.6-1.3); GLUCOSE 100 mg/dL (70-105); PROTEIN TOTAL 6.2 g/dL (6.0-8.3); UREA NITROGEN BLOOD 9 mg/dL (7-21)
[2023-08-01] MEDS: HYDRALAZINE HCL 25MG TABLET PO SCH ×3 (06:06→21:31)
[2023-08-01] MEDS: DEXT 5%/LACTATED RINGERS 1,000 ML IV SCH (07:36)
[2023-08-01] MEDS: LEVETIRACETAM 500MG PREMIX 100 ML IV SCH ×2 (08:21→20:45)
[2023-08-01] MEDS: PANTOPRAZOLE SODIUM 40 MG/VIAL IV SCH (08:22)
[2023-08-01] MEDS: AMLODIPINE 10MG TABLET PO SCH (08:22)
[2023-08-01] MEDS: METOPROLOL TARTRATE 25MG TABLET PO SCH ×2 (08:22→20:45)
[2023-08-01] MEDS ORDERED: POTASSIUM CHLORIDE 20MEQ TABLET SR PO NR (09:00)
[2023-08-02] VITALS (49 sets, daily range): BP systolic 130–168; BP diastolic 79–100; PULSE 78–96; RESP 14–32; TEMP 98–99.1
[2023-08-02 05:35] LABS: CHLORIDE 108 mEq/L (98-107); INDEX HEMOLYSI 1 (1-3); INDEX ICTERIC 1 (1-4); INDEX LIPEMIC 1 (1-3); POTASSIUM 3.5 mEq/L (3.5-5.1); SODIUM 139 mEq/L (136-145)
[2023-08-02] MEDS: HYDRALAZINE HCL 25MG TABLET PO SCH (05:45)
[2023-08-02 05:46] LABS: ALANINE AMINOTRANSFERASE 70 IU/L (13-61); ALBUMIN 2.6 g/dL (3.4-5.0); ASPARTATE AMINOTRANSFERASE 27 IU/L (15-37); BILIRUBIN TOTAL 0.7 mg/dL (0.1-1.0); CALCIUM 8.3 mg/dL (8.5-10.1); CARBON DIOXIDE 26 mEq/L (21-32); CREATININE 0.9 mg/dL (0.6-1.3); GLUCOSE 103 mg/dL (70-105); PROTEIN TOTAL 6.4 g/dL (6.0-8.3); UREA NITROGEN BLOOD 9 mg/dL (7-21)
[2023-08-02 06:45] LABS: BASOPHILS % 0.1 % (0.0-2.0); EOSINOPHILS % 1.4 % (0.0-5.0); HEMATOCRIT. 35.7 % (36.0-48.0); HEMOGLOBIN. 11.9 g/dL (12.0-16.0); LYMPHOCYTES % 10.6 % (20.0-50.0); MEAN CORPUSCULAR HEMOGLOBIN 31.3 pg (28.0-32.0); MEAN CORPUSCULAR HGB CONC 33.3 g/dL (31.0-37.0); MEAN CORPUSCULAR VOLUME 93.9 fL (81.0-99.0); MEAN PLATELET VOLUME 9.5 fl (7.4-10.4); NEUTROPHILS % 79.9 % (40.0-76.0); PLATELET 225 x1000/uL (130-400); RED CELL DISTRIBUTION WIDTH 14.4 % (11.6-14.6)
[2023-08-02] MEDS: LABETALOL 5MG/ML SYR 20 MG/4 ML SYRINGE IV PRN ×2 (06:48→19:24)
[2023-08-02] MEDS: METOPROLOL TARTRATE 25MG TABLET PO SCH (08:11)
[2023-08-02] MEDS: PANTOPRAZOLE SODIUM 40 MG/VIAL IV SCH (08:11)
[2023-08-02] MEDS: POTASSIUM CHLORIDE 20MEQ TABLET SR PO SCH (08:12)
[2023-08-02] MEDS: AMLODIPINE 10MG TABLET PO SCH (08:12)
[2023-08-02] MEDS: LEVETIRACETAM 500MG PREMIX 100 ML IV SCH (08:12)
[2023-08-02] MEDS: METOPROLOL TARTRATE 50MG TABLET PO SCH ×2 (09:00→20:45)
[2023-08-02] MEDS: LEVETIRACETAM 500MG TABLET PO SCH ×2 (09:00→20:44)
[2023-08-02] MEDS: HYDRALAZINE HCL 100MG TABLET PO SCH ×2 (14:36→22:04)
[2023-08-03] VITALS (31 sets, daily range): BP systolic 124–158; BP diastolic 82–97; PULSE 77–93; RESP 13–26; TEMP 98.3–98.7
[2023-08-03 05:23] LABS: BASOPHILS % 0.2 % (0.0-2.0); EOSINOPHILS % 2.4 % (0.0-5.0); HEMATOCRIT. 34.4 % (36.0-48.0); HEMOGLOBIN. 11.5 g/dL (12.0-16.0); LYMPHOCYTES % 12.8 % (20.0-50.0); MEAN CORPUSCULAR HEMOGLOBIN 31.3 pg (28.0-32.0); MEAN CORPUSCULAR HGB CONC 33.4 g/dL (31.0-37.0); MEAN CORPUSCULAR VOLUME 93.7 fL (81.0-99.0); MEAN PLATELET VOLUME 8.8 fl (7.4-10.4); MONOCYTES % 9.1 % (2.0-8.0); NEUTROPHILS % 75.5 % (40.0-76.0); PLATELET 236 x1000/uL (130-400); RED BLOOD CELL COUNT 3.67 mill/uL (4.2-5.4); RED CELL DISTRIBUTION WIDTH 14.3 % (11.6-14.6); WHITE BLOOD COUNT 5.9 x1000/uL (4.5-11.0)
[2023-08-03] MEDS: HYDRALAZINE HCL 100MG TABLET PO SCH ×3 (05:24→23:00)
[2023-08-03] MEDS: HYDRALAZINE 20MG/ML VIAL IV PRN ×2 (05:26→20:35)
[2023-08-03 05:31] LABS: CHLORIDE 107 mEq/L (98-107); INDEX HEMOLYSI 1 (1-3); INDEX ICTERIC 1 (1-4); INDEX LIPEMIC 1 (1-3); POTASSIUM 3.4 mEq/L (3.5-5.1); SODIUM 139 mEq/L (136-145)
[2023-08-03 05:41] LABS: ALANINE AMINOTRANSFERASE 64 IU/L (13-61); ALBUMIN 2.7 g/dL (3.4-5.0); ASPARTATE AMINOTRANSFERASE 22 IU/L (15-37); BILIRUBIN TOTAL 0.5 mg/dL (0.1-1.0); CALCIUM 8.8 mg/dL (8.5-10.1); CARBON DIOXIDE 27 mEq/L (21-32); CREATININE 0.9 mg/dL (0.6-1.3); GLUCOSE 116 mg/dL (70-105); PHOSPHORUS 3.7 mg/dL (2.5-4.9); PROTEIN TOTAL 6.5 g/dL (6.0-8.3); UREA NITROGEN BLOOD 10 mg/dL (7-21)
[2023-08-03] MEDS: PANTOPRAZOLE SODIUM 40 MG/VIAL IV SCH (08:13)
[2023-08-03] MEDS: POTASSIUM CHLORIDE 20MEQ TABLET SR PO SCH (08:13)
[2023-08-03] MEDS: LEVETIRACETAM 500MG TABLET PO SCH ×2 (08:14→21:08)
[2023-08-03] MEDS: AMLODIPINE 10MG TABLET PO SCH (08:14)
[2023-08-03] MEDS: METOPROLOL TARTRATE 50MG TABLET PO SCH ×2 (08:14→21:09)
[2023-08-04] VITALS (18 sets, daily range): BP systolic 129–157; BP diastolic 78–94; PULSE 75–93; RESP 17–28; TEMP 96.8–98.9; O2SAT 100
[2023-08-04 04:45] LABS: HEMATOCRIT 34.1 % (36.0-48.0); HEMOGLOBIN 11.5 g/dL (12.0-16.0); MEAN CORPUSCULAR HEMOGLOBIN 31.6 pg (28.0-32.0); MEAN CORPUSCULAR HGB CONC 33.6 g/dL (31.0-37.0); MEAN CORPUSCULAR VOLUME 93.9 fL (81.0-99.0); PLATELET 228 x1000/uL (130-400); RED BLOOD CELL COUNT 3.63 mill/uL (4.2-5.4); RED CELL DISTRIBUTION WIDTH 14.3 % (11.6-14.6); WHITE BLOOD COUNT 5.6 x1000/uL (4.5-11.0)
[2023-08-04 05:14] LABS: CARBON DIOXIDE 24 mEq/L (21-32); CHLORIDE 106 mEq/L (98-107); CREATININE 0.8 mg/dL (0.6-1.0); GLUCOSE 81 mg/dL (70-105); PHOSPHORUS 4.4 mg/dL (2.5-4.9); POTASSIUM 3.5 mEq/L (3.5-5.1); SODIUM 141 mEq/L (136-145); UREA NITROGEN BLOOD 10 mg/dL (9-23)
[2023-08-04] MEDS: HYDRALAZINE HCL 100MG TABLET PO SCH ×2 (06:37→14:07)
[2023-08-04] MEDS: LEVETIRACETAM 500MG TABLET PO SCH (08:56)
[2023-08-04] MEDS: PANTOPRAZOLE SODIUM 40 MG/VIAL IV SCH (08:56)
[2023-08-04] MEDS: AMLODIPINE 10MG TABLET PO SCH (08:56)
[2023-08-04] MEDS: METOPROLOL TARTRATE 50MG TABLET PO SCH (08:56)
[2023-08-04] MEDS: POTASSIUM CHLORIDE 20MEQ TABLET SR PO SCH (08:56)
[2023-08-04] MEDS ORDERED: METO-539 PO (11:56)
[2023-08-04] MEDS ORDERED: HYDR100T26 PO (11:56)
[2023-08-04] MEDS ORDERED: AMLO10TA80 PO (11:56)
[2023-08-04] MEDS ORDERED: ASPI-1497 PO (11:57)
[2023-08-04] MEDS ORDERED: ATOR10TA69 PO (11:58)
[2023-08-04] MEDS ORDERED: HYDRALAZINE 10 MG in SODIUM CHLORIDE 0.9% 49.5 ML IV PRN (15:45)
== END 2023-08-04 16:40 | disposition home or self-care (01) | DRG 23 ==
LOC: ER 17:32 → EDBEDREQ 17:58 → MICUSO 21:03 → EDBEDREQTM 21:16 → EDBEDREQ 21:16 → MICUSO 07-21 01:45 → 6WST 08-04 10:20
PROVIDERS: ADMIT Hospitalist; ATTEND Hospitalist
PROC: 00CC0ZZ Extirpation of Matter from Cerebellum, Open Approach (ICD-10-PCS; principal; 2023-07-25)
PROC: 00U207Z Supplement Dura Mater with Autologous Tissue Substitute, Open Approach (ICD-10-PCS; 2023-07-25)
PROC: 02HV33Z Insertion of Infusion Device into Superior Vena Cava, Percutaneous Approach (ICD-10-PCS; 2023-07-25)
PROC: B548ZZA Ultrasonography of Superior Vena Cava, Guidance (ICD-10-PCS; 2023-07-25)
PROC: 009630Z Drainage of Cerebral Ventricle with Drainage Device, Percutaneous Approach (ICD-10-PCS; 2023-08-03)
DX: I61.4 Nontraumatic intracerebral hemorrhage in cerebellum (principal); G93.5 Compression of brain; G91.9 Hydrocephalus, unspecified; I16.1 Hypertensive emergency; N17.9 Acute kidney failure, unspecified; G93.40 Encephalopathy, unspecified; E87.6 Hypokalemia; I10 Essential (primary) hypertension; R74.01 Elevation of levels of liver transaminase levels; R40.20 Unspecified coma; I61.5 Nontraumatic intracerebral hemorrhage, intraventricular; S00.01XA Abrasion of scalp, initial encounter; Z79.899 Other long term (current) drug therapy; W18.39XA Other fall on same level, initial encounter; Y93.89 Activity, other specified; Y92.89 Other specified places as the place of occurrence of the external cause; Y99.8 Other external cause status
CPT/HCPCS: 36415; 36573; 36600; 70496; 71045; 80048; 80053; 80061; 80305; 80320; 81003; 82375; 82542; 82550; 82805; 83036; 83735; 83880; 84100; 84439; 84443; 84478; 84484; 85025; 85027; 86803; 87340; 92523; 92610; 93005; 93306; 94002; 94003; 96365; 96375; 97116; 97162; 97166; 99291; 99292; A6261; C1725; C9113; J0330; J0360; J0690; J1100; J1580; J1953; J2150; J2270; J2405; J2704; J3475; J3480; J3490; J7050; J7120; J7121; Q9967; A4315; C1713; G0480